=== PATIENT | male | born 1950 | race Caucasian/White ===

== ENCOUNTER 2022-01-12 06:22 | Inpatient (IN) | payer MEDICARE ==
[2022-01-10 10:10] LABS: HEMATOCRIT 42.9 % (39.0-50.0); IMMATURE GRANULOCYTES 0.1 % (0.0-5.0); MEAN CELL VOLUME 92.7 fL CALC (80.0-100.0); MEAN CORPUSCULAR HGB 29.8 pG CALC (26.0-32.0); MEAN CORPUSCULAR HGB CONC 32.2 g/dL CAL (32.0-36.0); NEUT# 5.06 thou/uL (1.82-7.42); RED BLOOD COUNT 4.63 mill/uL (4.70-6.10); RED CELL DISTRI WIDTH 14.3 % (11.5-15.5)
[2022-01-10 10:11] LABS: HEMOGLOBIN 13.8 g/dl (14.0-18.0)
[~2022-01-12] VITALS: Ht 182.9 cm; Wt 101.2 kg
[~2022-01-12 06:22] MED LIST: ASPIRIN81 MG PO; AUGMENTIN875TAB PO; CIPRO500 MG PO; HAZAR; HYZAAR1 TA2 PO; LIPITOR80 M1 PO; LISINOP/HCTZ1 TA2 PO; LORTAB 5/3255 MG PO; NORVASC5 M1 PO; PRAVACHOL40 MG PO; SYNTHROID125 MCG PO; XARELTO20 MG PO; [UNRECOGNIZED DRUG - OTHER]
--- NOTE | 2022-01-12 11:20 | NUR ---
PT ARRIVED VIA STRTCHER WITH CHECK PILOT. BED SIDE REPORT GIVEN PT STATES PAIN IS CONTROLLED TO PRIOR PAIN MEDICATION GIVEN IN OR. EDUCATED PT ON POST OP CARE, IS GIVEN. PT DEMONSTARTED BACK. TURN DEEP BREATHING PERFROMED. IVF INFUSING PER EMAR. 20 RAC FLUSHED. HIP PILLOWS IN PLACE. ASSESSMENT ADMISSION PERFORMED. PT IS A&OX3. LUNG SOUNDS ARE CLEAR. HEART SOUNDS ARE IRREGULAR UPON AUSCULATION. BOWEL SOUNDS ACTIVE X4.HIP PILLOW IN PLACE. SCDS IN PLACE. FLUIDS PROVIDED. FALL/SAFTEY PRECAUTION IN PLACE. CALL LIGHT WITHIN REACH
--- NOTE | 2022-01-12 13:40 | NUR ---
PT AT BEDSIDE
[2022-01-12 15:06] VITALS: BP 110/67
--- NOTE | 2022-01-12 16:15 | NUR ---
PT SLEEPING. BREATHING EVEN AND UNLABORED. FALL/SAFTEY PRECAUTION IN PLACE. CALL LIGHT WITHIN REACH
--- NOTE | 2022-01-12 16:31 | NUR ---
PT STATES NO PAIN. HIP PILLOWS IN PLACE. FALL/SAFTEY PRECAUTION IN PLACE. CALL LIGHT WITHIN REACH
--- NOTE | 2022-01-12 19:15 | NUR ---
AWAKE ALERT LYING IN BED [place] POSITION ABDUCTION PILLOW IN PLACE. COMPLAIN OF PAIN WITH REPOSITIONING IN BED. INCENTIVE SPIROMETER USED AT BEDSIDE WITH GOOD RESULTS. MEDICATED FOR RELEF OF PAIN.
[2022-01-12 19:54] VITALS: BP 113/58
--- NOTE | 2022-01-12 21:37 | NUR ---
AWAKE, ORIENTED X 3 HAVING PAIN WITH REPOSITIONING IN BED REMEDICATED FOR COMFORT.
--- NOTE | 2022-01-13 | NUR ---
PATIENT AWAKE ENCOURAGED TO USE INCENTIVE SPIROMETER. LEFT HIP DRSG CLEAN DRY AND INTACT. URINE XIAO CLEAR VOIDED 400 CC
[2022-01-13 04:24] VITALS: BP 121/74
[2022-01-13 06:36] VITALS: BP 119/68
[2022-01-13 06:53] LABS: HEMATOCRIT 37.8 % (39.0-50.0); HEMOGLOBIN 11.9 g/dl (14.0-18.0); MEAN CELL VOLUME 94.7 fL CALC (80.0-100.0); MEAN CORPUSCULAR HGB 29.8 pG CALC (26.0-32.0); MEAN CORPUSCULAR HGB CONC 31.5 g/dL CAL (32.0-36.0); RED BLOOD COUNT 3.99 mill/uL (4.70-6.10); RED CELL DISTRI WIDTH 14.3 % (11.5-15.5)
[2022-01-13 07:08] LABS: CREATININE 1.7 mg/dL (0.7-1.3); MAGNESIUM 1.7 mg/dL (1.6-2.3); POTASSIUM 4.3 mmol/l (3.5-5.1)
--- NOTE | 2022-01-13 08:00 | NUR ---
PT AWAKE IN BED. STATES PAIN IS MILD IN LEFT HIP. IV FLUSHED 20 RAC. HIP PILLOWS REMOVED. EDUCATED PT ON HIP PILLOWS. IS AT BED SIDE PERFORMED. TURN/COUGH DEEP BREATHE PERFORMED. ASSESSMENT ALLOWED. PT A&OX3. LUNG SOUNDS CLEAR.BOWEL SOUNDS ACTIVE X4. FALL/SAFTEY PRECAUTION IN PLACE. CALL LIGHT WITHIN REACH
[2022-01-13 09:18] VITALS: BP 119/68
[2022-01-13] MEDS ORDERED: PERCOCET 10/31 COMBO PO (10:07)
--- NOTE | 2022-01-13 11:15 | NUR ---
DRESSING TO LEFT HIP REMOVED. PT TOLERATED WELL. PT STATES NO PAIN. FALL/SAFTEY PRECAUTION IN PLACE. CALL LIGHT WITHIN REACH
--- NOTE | 2022-01-13 12:27 | NUR ---
Discharge instructions given. Patient verbalizes understanding of same. Discharged in stable condition via Wheelchair to Home with staff. All belongings sent with pt.
== END 2022-01-13 12:26 | disposition home health service (06) | DRG 470 ==
LOC: ORM 06:22 → MS2 11:19 → ORM 21:15 → MS2 01-13 12:26
PROVIDERS: Internal Medicine; ADMIT Orthopaedic Surgery; ATTEND Orthopaedic Surgery
PROC: 0SRB0JA Replacement of Left Hip Joint with Synthetic Substitute, Uncemented, Open Approach (ICD-10-PCS; principal; 2022-01-12)
PROC: 0SNDXZZ Release Left Knee Joint, External Approach (ICD-10-PCS; 2022-01-12)
DX: M16.12 Unilateral primary osteoarthritis, left hip (principal); T84.82XA Fibrosis due to internal orthopedic prosthetic devices, implants and grafts, initial encounter; I12.9 Hypertensive chronic kidney disease with stage 1 through stage 4 chronic kidney disease, or unspecified chronic kidney disease; N18.9 Chronic kidney disease, unspecified; I48.91 Unspecified atrial fibrillation; E03.9 Hypothyroidism, unspecified; E78.5 Hyperlipidemia, unspecified; Y83.1 Surgical operation with implant of artificial internal device as the cause of abnormal reaction of the patient, or of later complication, without mention of misadventure at the time of the procedure; Z96.652 Presence of left artificial knee joint; Z87.891 Personal history of nicotine dependence; Z91.19 Patient's noncompliance with other medical treatment and regimen; Z79.01 Long term (current) use of anticoagulants
CPT/HCPCS: C1713; J0131

== ENCOUNTER 2022-12-22 08:46 | Emergency (ER) | payer MEDICARE ==
[2022-12-22] VITALS (9 sets, daily range): BP systolic 103–145; BP diastolic 65–83
[~2022-12-22] VITALS: Ht 182.9 cm; Wt 113.0 kg
[~2022-12-22 08:46] MED LIST changes: +PERCOCET 10/31 COMBO PO
[2022-12-22 09:15] LABS: BASO% 0.5 % (0-3); EOS% 2.3 % (0-8); HEMATOCRIT 43.8 % (39.0-50.0); HEMOGLOBIN 13.5 g/dl (14.0-18.0); IMMATURE GRANULOCYTES 0.5 % (0.0-5.0); MEAN CORPUSCULAR HGB CONC 30.8 g/dL CAL (32.0-36.0); MONO% 9.9 % (2-13); NEUT# 6.36 thou/uL (1.82-7.42); NEUT% 72.8 % (42-76); RED BLOOD COUNT 4.66 mill/uL (4.70-6.10); RED CELL DISTRI WIDTH 14.6 % (11.5-15.5)
[2022-12-22 09:35] LABS: BILIRUBIN, TOTAL 0.6 mg/dL (0.2-1.3); CREATININE 1.4 mg/dL (0.7-1.3); TOTAL PROTEIN 7.6 g/dL (6.3-8.2)
== END 2022-12-22 10:58 | disposition left against medical advice (07) ==
LOC: ED 08:46
PROVIDERS: Family Medicine
DX: R07.9 Chest pain, unspecified (principal); I10 Essential (primary) hypertension; F17.210 Nicotine dependence, cigarettes, uncomplicated; Z53.29 Procedure and treatment not carried out because of patient's decision for other reasons

== ENCOUNTER 2024-06-01 12:47 | Emergency (ER) | payer MEDICARE ==
[~2024-06-01] VITALS: Ht 182.9 cm; Wt 106.0 kg
[2024-06-01 13:04] VITALS: BP 116/61
[2024-06-01 13:15] VITALS: BP 100/68
[2024-06-01 13:30] VITALS: BP 104/60
[2024-06-01 14:39] VITALS: BP 104/60
== END 2024-06-01 14:39 | disposition home or self-care (01) ==
LOC: ED 12:47
PROC: 02HV33Z Insertion of Infusion Device into Superior Vena Cava, Percutaneous Approach (ICD-10-PCS; principal; 2024-06-01)
PROC: B518ZZA Fluoroscopy of Superior Vena Cava, Guidance (ICD-10-PCS; 2024-06-01)
DX: Z45.2 Encounter for adjustment and management of vascular access device (principal); Z96.652 Presence of left artificial knee joint; I10 Essential (primary) hypertension; F17.200 Nicotine dependence, unspecified, uncomplicated

== ENCOUNTER 2024-06-23 09:53 | Emergency (ER) | payer MEDICARE ==
[~2024-06-23] VITALS: Ht 182.9 cm; Wt 102.0 kg
[2024-06-23] VITALS (7 sets, daily range): BP systolic 113–137; BP diastolic 70–83
== END 2024-06-23 12:37 | disposition home or self-care (01) ==
LOC: ED 09:53
PROC: 02HV33Z Insertion of Infusion Device into Superior Vena Cava, Percutaneous Approach (ICD-10-PCS; principal; 2024-06-23)
PROC: B518ZZA Fluoroscopy of Superior Vena Cava, Guidance (ICD-10-PCS; 2024-06-23)
DX: Z46.89 Encounter for fitting and adjustment of other specified devices (principal); M00.9 Pyogenic arthritis, unspecified; I10 Essential (primary) hypertension; F17.200 Nicotine dependence, unspecified, uncomplicated

== ENCOUNTER 2024-07-17 10:01 | Emergency (ER) | payer MEDICARE ==
[~2024-07-17] VITALS: Ht 182.9 cm; Wt 106.8 kg
[2024-07-17 10:19] VITALS: BP 142/83
[2024-07-17 10:30] VITALS: BP 123/80
[2024-07-17 11:30] VITALS: BP 137/73
[2024-07-17 11:44] VITALS: BP 137/73
== END 2024-07-17 11:45 | disposition home or self-care (01) ==
LOC: ED 10:01
DX: T82.524A Displacement of infusion catheter, initial encounter (principal); I10 Essential (primary) hypertension; Z79.01 Long term (current) use of anticoagulants; Y83.8 Other surgical procedures as the cause of abnormal reaction of the patient, or of later complication, without mention of misadventure at the time of the procedure